=== PATIENT | female | born 1955 | race Caucasian/White ===

== ENCOUNTER 2021-06-02 12:02 | Emergency (ER) | payer SELFPAY ==
[~2021-06-02] VITALS: Ht 160 cm; Wt 94.3 kg
[~2021-06-02 12:02] MED LIST: ASPIRIN81 MG PO; CITRACAL + D C1 EACH PO; CRANBERRY500 M1 PO; METAMUCIL PO; OMEGA 3-6-9 CO400 MG PO; POTASSIUM PO; PRAMIPEXOLE DIHY1 MG PO; SIMVASTATIN40 MG PO; SYNTHROID125 MCG PO; UNISOM50 MG PO; VITAMIN D35000 UNIT PO; VITAMINB PO; ZYRTEC10 M3 PO
[2021-06-02] MEDS ORDERED: LACTATED RINGER'S 1,000 ML INJ ONE (13:00)
[2021-06-02 13:28] LABS: BASOPHILS % 0.3 % (0.0-1.0); EOSINOPHILS # (AUTO) 0.1 (0.0-0.4); EOSINOPHILS % 1.9 % (0.0-6.0); HEMATOCRIT 40.9 % (34.2-44.1); HEMOGLOBIN 13.4 g/dL (12.0-16.0); LYMPHOCYTES # (AUTO) 1.3 (1.0-3.2); LYMPHOCYTES % 20.8 % (18.0-39.1); MEAN CORPUSCULAR HEMOGLOBIN 30.2 pg (28-32); MEAN CORPUSCULAR HGB CONC 32.8 g/dL (31-35); MEAN CORPUSCULAR VOLUME 92.3 fL (81-99); MONOCYTES # (AUTO) 0.4 (0.2-0.8); MONOCYTES % 6.4 % (4.4-11.3); NEUTROPHILS # (AUTO) 4.5 (2.1-6.9); NEUTROPHILS % 70.3 % (38.7-80.0); PLATELET COUNT 204 x10e3/uL (140-360); RED BLOOD COUNT 4.43 x10e6/uL (3.6-5.1); RED CELL DISTRIBUTION WIDTH 13.1 % (11.7-14.4)
[2021-06-02 13:45] LABS: ALBUMIN 3.8 g/dL (3.5-5.0); ALBUMIN/GLOBULIN RATIO 1.2 (0.8-2.0); CALCIUM 9.5 mg/dL (8.4-10.2); CREATININE, SERUM 0.82 mg/dL (0.57-1.11); MAGNESIUM 2.2 MG/DL (1.3-2.1)
[2021-06-02 14:47] LABS: CLARITY,URINE CLEAR (CLEAR); COLOR,URINE YELLOW (YELLOW); KETONES,URINE TRACE (NEGATIVE); LEUKOCYTE ESTERASE ,URINE TRACE (NEGATIVE); NITRITE,URINE NEGATIVE (NEGATIVE); PROTEIN,URINE DIPSTICK NEGATIVE (NEGATIVE); URINE UROBILINOGEN 0.2 mg/dL (0.2 - 1)
[2021-06-02 14:51] LABS: BACTERIA,URINE RARE /HPF; EPITHELIAL CELLS,URINE FEW /LPF
[2021-06-02] MEDS ORDERED: LOMOTIL TABLET1 EACH PO (16:17)
[2021-06-02] MEDS ORDERED: DICYCLOMINE HCL20 MG PO (16:17)
[2021-06-02] MEDS ORDERED: PROMETHAZINE HC25 M1 PO (16:17)
== END 2021-06-02 17:00 | disposition home or self-care (01) ==
LOC: ER 13:06
DX: R07.89 Other chest pain (principal); R10.84 Generalized abdominal pain; R19.7 Diarrhea, unspecified; K21.9 Gastro-esophageal reflux disease without esophagitis; I10 Essential (primary) hypertension; E03.9 Hypothyroidism, unspecified; F41.9 Anxiety disorder, unspecified; R94.31 Abnormal electrocardiogram [ECG] [EKG]
CPT/HCPCS: 36415; 74022; 80053; 81001; 82550; 82553; 83690; 83735; 84484; 85025; 93005; 99284; J7121